=== PATIENT | male | born 2000 | race Caucasian/White ===

== ENCOUNTER 2019-11-25 09:53 | Emergency (ER) | payer OTHER, SELFPAY ==
[2019-11-25 09:54] VITALS: BP 101/51; PULSE 62; RESP 17; TEMP 36.8; O2SAT 100; BMI 21.2
--- NOTE | 2019-11-25 10:07 | ED.VISSUMM ---
- ER Visit Summary Date of Service: 11/25/19 Chief Complaint: [Nasal injury] History of Present Illness: The patient is a 19 M [presents the emergency department with an injury to his nose that occurred this morning. Patient states that he was placing some supports under a stack of lumber when his father picked up 1 end of the lumbar none noting that the patient's face was near the stack and accidentally bumped his nose with a stack of lumber. No loss of consciousness. He did have some small amount of bleeding from the right side of the nose. Patient initially felt somewhat lightheaded but that is resolved. Patient has no medical history.] Physical Examination: [HEENT-PERRLA, EOMI. Cranial nerves II through XII grossly intact. TMs clear. Mucous membranes moist. No adenopathy. Patient has some mild tenderness to the lateral aspect of the right side of the nasal bone. No obvious deformity noted. No real tenderness or crepitus noted to the bridge of the nose. Patient does have small amount of dried blood in the right nasal vault however there is no septal hematoma. Midface is stable. No orbital tenderness. There is no evidence of ecchymosis or bruising. No lacerations noted. Cardiovascular-regular rate and rhythm without murmur or ectopy Lungs-clear to auscultation, chest wall stable without crepitus or subcu emphysema Abdomen-normoactive bowel sounds, soft, nontender, no rebound or rigidity, no peritoneal signs. Extremities-intact ?4, normal range of motion, normal pulses, atraumatic] Test Results: [None indicated] Emergency Department Course and Treatment: [I discussed with patient and his father options of obtaining x-rays or imaging versus no imaging and they are comfortable with following up with ENT and not performing any imaging at this time as I do not feel it will change management administrator in any way. Patient only has some minimal soft tissue swelling to the right side of the nose with no obvious deformity noted. Not having any difficulty breathing through the nose.] Treatment Plan: [Aloe up with ENT in 5 to 7 days. Advised to use ibuprofen or Tylenol for discomfort.] Disposition: [Discharged home in stable condition] Impression: [Nasal contusion-cannot rule out nondisplaced fracture of the nasal bone] This note was generated with [employer] software. It may contain incorrect words, spelling, and punctuation that were not noted in review of the chart prior to signing ED Disposition - Plan for ED Patient: Referrals: Terrence Felix DO [Primary Care Provider] -
--- NOTE | 2019-11-25 10:10 | ED.DEP ---
ED Disposition - Plan for ED Patient: Instructions: FRACTURE, Nose versus Contus (No X-ray) Referrals: Terrence Felix DO [Primary Care Provider] - Barry Ferrara MD [STAFF PHYSICIAN] - 5-7 Days
[2019-11-25 10:21] VITALS: BP 101/51; PULSE 62; RESP 16
== END 2019-11-25 10:54 | disposition home or self-care (01) ==
LOC: ED 10:38
PROVIDERS: Emergency Provider Emergency Medicine; PCP Family Medicine
DX: S00.33XA Contusion of nose, initial encounter (principal); W22.8XXA Striking against or struck by other objects, initial encounter; Y93.89 Activity, other specified
CPT/HCPCS: 99282

== ENCOUNTER 2021-07-30 17:33 | Emergency (ER) | payer OTHER, SELFPAY ==
[2021-07-30 17:34] VITALS: BP 116/64; PULSE 75; RESP 14; TEMP 36.3; O2SAT 99; BMI 24.2
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
[2021-07-30] MEDS: Ondansetron ODT 4 MG Tablet PO (17:59)
--- NOTE | 2021-07-30 18:10 | RAD_ITS ---
INDICATION: injury EXAMINATION/TECHNIQUE: X-RAY - XR Spine Thoracic 3 Views COMPARISON: None FINDINGS: VERTEBRAE: Preserved vertebral body height. No fracture. No spondylolisthesis. Preservation of the normal thoracic kyphosis. No significant facet arthropathy. DISCS: Disc spaces are maintained. INCLUDED CHEST/ABDOMEN: No acute abnormalities. RAD/Thoracic Spine 3 Views IMPRESSION: No evidence of thoracic spinal fracture or spondylolisthesis. Electronically Signed: Avila Son MD at 18:46 EDT Tel , Service support ,
[2021-07-30] MEDS: Acetaminophen 500 MG Tablet 1000 MG PO (19:49)
[2021-07-30 19:54] VITALS: BP 124/81; PULSE 71; RESP 14; O2SAT 98
== END 2021-07-30 19:55 | disposition home or self-care (01) ==
PROVIDERS: Emergency Provider Emergency Medicine; PCP Family Medicine
DX: S06.0X0A Concussion without loss of consciousness, initial encounter (principal); S16.1XXA Strain of muscle, fascia and tendon at neck level, initial encounter; S50.311A Abrasion of right elbow, initial encounter; S60.512A Abrasion of left hand, initial encounter; V19.88XA Pedal cyclist (driver) (passenger) injured in other specified transport accidents, initial encounter; Y93.55 Activity, bike riding; Y92.9 Unspecified place or not applicable; Y99.8 Other external cause status; E04.1 Nontoxic single thyroid nodule
CPT/HCPCS: 70450; 72072; 72125; 99283

== ENCOUNTER → 2021-08-20 08:11 | Outpatient (CLI) | payer SELFPAY, OTHER ==
--- NOTE | 2021-08-20 08:14 | US_ITS ---
STUDY: THYROID ULTRASOUND REASON FOR EXAM: Male, 21 years old. Right thyroid cyst. TECHNIQUE: Ultrasound evaluation of the thyroid was performed with real-time and static akbar-scale imaging. COMPARISON: None. FINDINGS: RIGHT LOBE: The right lobe of the thyroid gland is enlarged and measures 5.2 cm x 1.7 cm x 2 cm. There is a homogeneous echotexture. 5 0.2 cm x 1.3 cm x 1 cm solid and cystic nodule in the midpole of the right lobe. There is also evidence of a 0.9 cm x 1 cm x 0.9 cm solid and cystic nodule in the lower pole. LEFT LOBE: The left lobe of the thyroid gland measures 4.6 cm x 1.4 cm x 1.3 cm. There is a homogeneous echotexture. There are no demonstrated solid, cystic or complex lesions. ISTHMUS: The isthmus measures 2 mm. The regional lymph nodes are normal. US/Thyroid IMPRESSION: Mild enlargement of the right lobe of the thyroid. 1.4 cm x 1.3 cm x 1 cm complex solid and cystic nodule in the midpole. Biopsy may be indicated. Electronically Signed: Benito Melendez MD at 9:45 EST , Service support ,
== END ==
PROVIDERS: PCP Family Medicine; Referring Provider Family Medicine; Visit Provider Family Medicine
DX: E04.1 Nontoxic single thyroid nodule (principal)
CPT/HCPCS: 76536